=== PATIENT | female | born 1960 | race Caucasian/White ===

== ENCOUNTER 2017-05-07 12:35 | Outpatient (CLI) | payer OTHER ==
--- NOTE | 2017-05-07 13:16 | Mammography Report ---
Screening mammogram: Routine views demonstrate a nodular density just inferior and medial to the right nipple. The right nipple however would not included in profile. An area of asymmetric tissue is noted in the lateral left breast seen only in the CC projection. The remainder the breast pattern is generally fatty replaced and relatively unremarkable. CAD used. Impression: Bilateral asymmetries. Recommendation: Bilateral compression imaging of the asymmetries with ultrasound as needed. It is of note this patient had a prior study 3 years ago however its location is questionable and there was a language barrier. If this exam can be obtained for comparison the current recommendation may be altered or avoided. BI-RADS CATEGORY: 0 = Needs additional imaging evaluation ACR BI-RADS MAMMOGRAPHIC CODES: 0 = Needs additional imaging evaluation; 1 = Negative; 2 = Benign; 3 = Probably benign; 4 = Suspicious; 5 = Malignant; 6 = Known biopsy-proven malignancy COMMENT: 1. Dense breast tissue, i.e., adenosis, fibrocystic changes, etc., may obscure an underlying neoplasm. 2. Approximately 10% of cancers are not detected with mammography. 3. A negative mammography report should not delay biopsy if a clinically suspicious mass is present.
== END 2017-05-07 12:36 | disposition home or self-care (01) ==
LOC: MAMMO 12:35
PROVIDERS: ATTEND Family Medicine
DX: Z12.31 Encounter for screening mammogram for malignant neoplasm of breast (principal)
CPT/HCPCS: 77067; G0202